=== PATIENT | male | born 2000 | race Caucasian/White ===

== ENCOUNTER → 2022-08-01 | Day surgery (SDC) | payer BC ==
[~2022-08-01] MED LIST: Flumazenil 0.1 MG/ML 10 ML MDV ONE; Ketamine 200 MG/20 ML MDV ONE; Ketorolac 30 MG/ML SDV ONE; Lactated Ringers 1,000 ML IV SCH; Lidocaine 0.5% 50 ML SDV ONE; Midazolam 1 MG/ML 2 ML SDV ONE; Propofol 200 MG/20 ML SDV ONE; fentaNYL 50 MCG/ML SDV ONE
[2022-08-01 13:15] VITALS: BP 123/64; PULSE 57
== END ==
LOC: CC.SDS 09:17
PROVIDERS: ATTEND Surgery
DX: M67.431 Ganglion, right wrist (principal); M67.441 Ganglion, right hand; J30.9 Allergic rhinitis, unspecified; F41.9 Anxiety disorder, unspecified; F98.8 Other specified behavioral and emotional disorders with onset usually occurring in childhood and adolescence; F32.A Depression, unspecified; Z88.0 Allergy status to penicillin; Z88.1 Allergy status to other antibiotic agents; Z79.899 Other long term (current) drug therapy; Z98.890 Other specified postprocedural states
CPT/HCPCS: J1885; J2250; J2704; J3010; J7120